=== PATIENT | male | born 1975 | race Caucasian/White ===

== ENCOUNTER 2020-05-16 16:14 | Outpatient (CLI) | payer OTHER, SELFPAY ==
--- NOTE | ~2020-05-16 | CT_ITS ---
EXAMINATION: CT abdomen pelvis w con EXAM DATE: 05/16/2020 17:35 INDICATION: Hiatal hernia, nausea vomiting epigastric pain, nausea, loss of appetite. TECHNIQUE: Spiral CT of the abdomen and pelvis was performed following intravenous injection of 100 m L Omnipaque 350. Axial, coronal and sagittal images were reviewed. The dose-length product (DLP) fo r this examination was 1408.38 mGy-cm. The exposure was tailored according to patient size (auto mA exposure control), and iterative reconstruction (ASIR) was used as additional dose reduction techniqu e. Comparison is made to prior examination from 03/19/2017. FINDINGS: The liver, spleen, adrenal glands and pancreas are unremarkable. There are cholecystectomy clips. Portal and splenic veins are patent. Kidneys enhance symmetrically. There is no hydronephr osis. The prostate is unremarkable. The bladder is unremarkable. There is no retroperitoneal or p elvic lymphadenopathy. Small bilateral inguinal fat-containing hernias. Small umbilical fat-contain ing hernia. The appendix is normal. The stomach and small bowel are unremarkable, no gastroesophageal hiatal her chang.. There is expected amount of colonic stool. No free intraperitoneal gas. The heart is mai l in size. There are no pericardial or pleural effusions. The lung bases are unremarkable. There a re several pelvic bone islands which are unchanged. Moderate bilateral hip osteoarthritis. Lower thor acic bridging endplate osteophytes. IMPRESSION: 1. No acute intra-abdominal findings. 2. Small inguinal and umbilical fat-containing hernias. 3. No hiatal hernia. Reviewed, dictated and finalized at location A.
== END 2020-05-16 16:15 | disposition home or self-care (01) ==
LOC: CHSIMG 16:16
PROVIDERS: PCP Nurse Practitioner Family; Visit Provider Nurse Practitioner Family
DX: K44.9 Diaphragmatic hernia without obstruction or gangrene (principal); R11.2 Nausea with vomiting, unspecified
CPT/HCPCS: 74177; Q9967

== ENCOUNTER → 2020-09-13 00:39 | Outpatient (CLI) | payer OTHER, SELFPAY ==
[2020-09-13 17:52] LABS: SARS-CoV-2 RNA PCR Negative
== END ==
PROVIDERS: PCP Nurse Practitioner Family; Visit Provider Internal Medicine Gastroenterology
DX: Z01.812 Encounter for preprocedural laboratory examination (principal); Z20.822 Contact with and (suspected) exposure to COVID-19
CPT/HCPCS: C9803; U0003; U0005

== ENCOUNTER 2020-09-16 00:43 | Day surgery (SDC) | payer OTHER, SELFPAY ==
[2020-09-05 16:03] VITALS: BMI 36.6
[2020-09-16 09:51] VITALS: BP 152/78; PULSE 68; RESP 18; TEMP 36.2; O2SAT 96; BMI 35.7
[2020-09-16] MEDS: LACTATED RINGERS 1,000 ML 30 ML IV CONT (10:01)
[2020-09-16 10:03] LABS: Glucose Point of Care 236 mg/dl (65-105)
--- NOTE | 2020-09-16 10:06 | P.PNAN_ITS ---
Anes - Initial Pre Proc Eval Procedure: Operation Date: 09/16/20 10:30 Proposed Procedures p Esophagogastroduodenoscopy & Colonoscopy - Luis Alberto Dean MD Date/Time: 09/16/20 10:06 Surgeon: Luis Alberto Dean MD Pre Op Diagnosis: nausea and diarrhea Patient Data Age: 44 Gender: M Height: 1.78 m Weight: 113 kg Last Vital Signs Temp 36.2 C L 09/16/20 09:51 Pulse 68 09/16/20 09:51 Resp 18 09/16/20 09:51 BP 152/78 H 09/16/20 09:51 Pulse Ox 96 09/16/20 09:51 Allergies Allergy/AdvReac Type Severity Reaction Status Date / Time No Known Allergies Allergy Unverified 09/16/20 09:49 Home Medications Medication Instructions Recorded Confirmed Type acetaminophen 500 mg tablet 500 mg PO BID tablet 03/18/20 09/16/20 History atorvastatin 80 mg tablet 80 mg PO DAILY #90 tablet 06/19/20 09/16/20 Rx ondansetron HCl 4 mg tablet 4 mg PO Q8H PRN #14 tablet 06/20/20 09/16/20 Rx lisinopril 20 mg tablet 20 mg PO DAILY #90 tablet 09/16/20 09/16/20 Rx omeprazole 40 mg capsule,delayed 40 mg PO DAILY #30 cap 09/16/20 09/16/20 Rx release Laboratory Tests 09/16/20 09:56 POC Capillary Glucose 236 mg/dl H mg/dl (65-105) Patient hx anesthesia problems: none Family hx anesthesia problems: none PMFSH Past Medical History Medical History Chronic GERD (03/04/17) Cigarette smoker (12/27/17) DM w/o complication type II (04/16/11) Hyperlipidemia associated with type 2 diabetes mellitus Hypertension associated with diabetes Surgical History Surgical History H/O neck surgery fusion 12-02-17 History of cholecystectomy Family History Family History Father Diabetes mellitus Grandparent Diabetes mellitus Social History Social History Smoking packs per day: 1 Smoking cigarettes per day: 20.0 Years smoked: 20 Smoking pack-years: 20.00 Smoking status: Current every day smoker Tobacco type: cigarettes Alcohol intake: current Alcohol use details: social Substance use: never Substance use type: does not use Living arrangements: with family Additional occupation/education comments: [employer] Gender identity (if verbalized by the patient): Male Spiritual care concerns: No Anes - Eval Final PreProcedure Day of Procedure 09/16/20 10:06 Patient weight: obese Heart: regular rate and rhythm Lungs: clear to auscultation Airway: Mallampati scale class II Neurological: alert and oriented Last oral intake: >/= 8 hours ASA classification: III Emergent: no Anesthetic plan: proceed Anesthesia type and monitoring: general GIVS and standard monitoring Informed Consent: The patient's anesthetic plan and its attendant risks and benefits were discussed with the patient/family/POA. Questions were solicited and answers provided to the satisfaction of the patient/family/POA.
--- NOTE | 2020-09-16 10:14 | PM.HPGS ---
History of Present Illness History of Present Illness Consent: Risks, benefits, and alternatives have been discussed and questions answered. Patient agrees to proceed with procedure. Chief complaint: nausea and diarrhea Narrative: Leonel Braden is a 44 year old male with nausea and upper abdominal discomfort, using omeprazole daily, also loose stools. CT scan a/p unremarkable. Never had colonoscopy Review of Systems Constitutional: Constitutional: Denies headache(s) and Denies weakness Eyes: Eyes: Denies blurry vision ENT: Reports Normal hearing present, Denies headache(s) and Denies neck pain Cardiovascular: Cardiovascular: Denies chest pain and Denies dyspnea Respiratory: Respiratory: Denies dyspnea Gastrointestinal: Gastrointestinal: Reports no additional gastrointestinal complaints Genitourinary: Genitourinary: Denies dysuria Musculoskeletal: Musculoskeletal: Denies neck pain Integumentary/Breasts: Skin/Breast: Denies dry skin Neurologic: Reports Normal hearing present, Denies headache(s) and Denies weakness Psychiatric: Psychiatric: Denies anxiety Endocrine: Endocrine: Denies change in body appearance Hematologic/Lymphatic: Hematologic/Lymphatic: Denies easy bleeding Allergic/Immunologic: Allergic/Immunologic: Denies urticaria PMFSH Past Medical History Medical History (Updated 09/16/20 @ 10:15 by Luis Alberto Dean MD) Chronic diarrhea Chronic GERD (03/04/17) Cigarette smoker (12/27/17) DM w/o complication type II (04/16/11) Hyperlipidemia associated with type 2 diabetes mellitus Hypertension associated with diabetes Surgical History Surgical History H/O neck surgery fusion 12-02-17 History of cholecystectomy Family History Family History Father Diabetes mellitus Grandparent Diabetes mellitus Social History Social History Smoking packs per day: 1 Smoking cigarettes per day: 20.0 Years smoked: 20 Smoking pack-years: 20.00 Smoking status: Current every day smoker Tobacco type: cigarettes Alcohol intake: current Alcohol use details: social Substance use: never Substance use type: does not use Living arrangements: with family Additional occupation/education comments: [employer] Gender identity (if verbalized by the patient): Male Spiritual care concerns: No Meds Home Medications and Allergies Home Medications Medication Instructions Recorded Confirmed Type acetaminophen 500 mg tablet 500 mg PO BID tablet 03/18/20 09/16/20 History atorvastatin 80 mg tablet 80 mg PO DAILY #90 tablet 06/19/20 09/16/20 Rx ondansetron HCl 4 mg tablet 4 mg PO Q8H PRN #14 tablet 06/20/20 09/16/20 Rx lisinopril 20 mg tablet 20 mg PO DAILY #90 tablet 09/16/20 09/16/20 Rx omeprazole 40 mg capsule,delayed 40 mg PO DAILY #30 cap 09/16/20 09/16/20 Rx release Allergies Allergy/AdvReac Type Severity Reaction Status Date / Time No Known Allergies Allergy Unverified 09/16/20 09:49 Vital Signs Vital Signs - 24 hr 09/16/20 09:51 Temperature 97.2 F L Pulse Rate 68 Respiratory Rate 18 Blood Pressure 152/78 H Pulse Oximetry 96 Exam Const: General: comfortable and no acute distress HENMT: General nose exam: Normal nares present Eyes: General: appearance normal, both eyes and all related structures Neck: Neck: no JVD Resp: Auscultation: clear to auscultation bilaterally Cardio: Rate: regular rate Rhythm: regular rhythm GI: Inspection: non-distended GI Palp: Yes Soft to palpation Skin: General skin exam: normal color Neuro: General: gait normal Speech: normal speech Extrem: General: normal to inspection Psych: Mental Status: mental status grossly normal Assessment and Plan Assessment and plan (1) Nausea: Code(s): R11.0 - Nausea Status: Ac
[2020-09-16 10:43] VITALS: BP 125/63; PULSE 67; RESP 17; O2SAT 99
[2020-09-16 10:53] VITALS: BP 114/68; PULSE 64; RESP 16; O2SAT 99
[2020-09-16 11:03] VITALS: BP 123/66; PULSE 59; RESP 15; O2SAT 100
== END 2020-09-16 11:12 | disposition home or self-care (01) ==
PROVIDERS: PCP Nurse Practitioner Family; Visit Provider Internal Medicine Gastroenterology
PROC: 0DJ08ZZ Inspection of Upper Intestinal Tract, Via Natural or Artificial Opening Endoscopic (ICD-10-PCS; CPT 43235; principal; 2020-09-16 10:30)
DX: R19.7 Diarrhea, unspecified (principal); K64.8 Other hemorrhoids; K29.50 Unspecified chronic gastritis without bleeding; K21.9 Gastro-esophageal reflux disease without esophagitis; E11.9 Type 2 diabetes mellitus without complications; Z87.891 Personal history of nicotine dependence; R11.0 Nausea
CPT/HCPCS: 45380; 43239; 82948; 88305; C9803; J2704; J7120; U0003; U0005

== ENCOUNTER 2021-08-04 13:54 | Outpatient (CLI) | payer OTHER, SELFPAY ==
--- NOTE | ~2021-08-04 | XR_ITS ---
EXAM: XR thoracic spine 2V DATE: 08/04/2021 14:45 HISTORY: M54.9 - Dorsalgia, unspecified . COMPARISON: None available. FINDINGS: Vertebral body alignment intact. Vertebral body heights preserved. Multilevel mild disc sp abigail narrowing and marginal osteophytosis. 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 No traumatic malalignment or fracture. Visualized lung parenchyma is clear. IMPRESSION: Multilevel mild degenerative disc disease. Diffuse idiopathic skeletal hyperostosis. Reviewed, dictated and finalized at location K. IMPRESSION: Multilevel mild degenerative disc disease. Diffuse idiopathic skele sunday hyperostosis.
--- NOTE | ~2021-08-04 | XR_ITS ---
EXAM: XR_CERV2-3V_CR DATE: 08/04/2021 14:45 HISTORY: M54.9 - Dorsalgia, unspecified . COMPARISON: None available. FINDINGS: Anterior screw and plate fusion with interbody bone plugs spanning C4-C7. No hardware fract ure, perihardware lucency, or bone plug displacement. Craniocervical association and atlantoaxial bety nt are intact. Prominent anterior osteophytes off the anterior aspect of the C1 arch and C2-3 disc sp abigail. No prevertebral soft tissue swelling. Vertebral bodies are aligned. Vertebral body heights and d isc spaces are maintained. Facets are aligned. IMPRESSION: No acute osseous finding in the cervical spine. No radiographic evidence of hardware-rela martín complication. Reviewed, dictated and finalized at location K. IMPRESSION: No acute osseous finding in the cervical spine. No radiographic anne marie dence of hardware-related complication.
--- NOTE | ~2021-08-04 | XR_ITS ---
EXAM: XR elbow LT min 3V DATE: 08/04/2021 14:45 HISTORY: M25.522 - Pain in left elbow no injury . COMPARISON: None available. FINDINGS: Normal mineralization. No fracture or dislocation. No lytic or blastic lesion. Mild osteop hytosis about the elbow joint. No erosion or periosteal change. Soft tissues within normal limits. IMPRESSION: No acute osseous finding in the left elbow. Mild left elbow osteoarthritis. Reviewed, dictated and finalized at location K. IMPRESSION: No acute osseous finding in the left elbow. Mild left elbow osteoar thritis.
== END 2021-08-04 13:55 | disposition home or self-care (01) ==
LOC: CHSIMG 13:56
PROVIDERS: PCP Family Medicine; Visit Provider Family Medicine
DX: M54.9 Dorsalgia, unspecified (principal); M25.522 Pain in left elbow
CPT/HCPCS: 72040; 72070; 73080

== ENCOUNTER 2021-08-11 17:06 | Outpatient (RCR) | payer OTHER, SELFPAY ==
--- NOTE | 2021-08-11 17:33 | PTOPEVAL ---
Thank you for referring Leonel Braden to [facility].? The patient is scheduled to be seen for therapy? __2__x/week for 6 visits. Please review, sign, date and return this plan of care CANDIDA. I agree with and certify that the following plan of care is medically necessary. Referring Physician Date Admitting Provider: Attending Provider: Kane Johnson DO Referring Provider: *PT Outpatient Evaluation Start: 08/11/21 17:09 Freq: Status: Active Protocol: Document 08/11/21 17:09 GAGE (Rec: 08/11/21 17:33 GAGE [id number]) Therapy Assessment Status Assessment Status Assessment Status Evaluation Outpatient Past Medical History Neurological History Hx Neurological Disorders No Significant History Cardiovascular History Hx Hypercholesterolemia Yes Hx Hypertension Yes Respiratory History Hx Respiratory Disorders No Significant History Gastrointestinal History Hx Cholecystectomy Yes: 2009 Hx Colitis Yes Hx Gastroesophageal Reflux Disease Yes Hx Other Gastrointestinal Disorders Yes: DIARRHEA CONSTANT FOR LONG TIME AND NAUSEA Genitourinary History Hx Genitourinary Disorders No Significant History Musculoskeletal History Hx Spinal Surgery Yes: CERVICAL VERTEBRAE C3-C7 11/2017 Hematological History Hx Hematological Disorders No Significant History Endocrine History Hx Diabetes Yes: TYPE 2 HEENT History Hx Tonsillectomy Yes: CHILDHOOD Hx Sinus Problems Yes: ALLERGIES Integumentary History Hx Skin Disorders No Significant History Reproductive History Hx Reproductive Disorders No Significant History Psychosocial History Hx Psychiatric Disorders No Significant History Pain History History of Any Previous or Ongoing No Significant History Instance of Pain Anesthesia History Hx Anesthesia Reactions No Significant History Other History Hx Implanted Device Yes: ? SCREWS NECK Evaluation Information Problem Diagnosis dorsalgia Onset 07/10/21 Subjective Information Pt. recalls no incident, he Query Text:As Reported By Patient/ states that he woke with Family numbness in his arm. He reports that he has no strength in the left arm. He reports he cannot fully open the hand. 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 He reports that pain and numbness
== END 2021-08-29 13:46 | disposition home or self-care (01) ==
LOC: CHSPT 17:06
PROVIDERS: PCP Family Medicine; Visit Provider Family Medicine
DX: M54.9 Dorsalgia, unspecified (principal)
CPT/HCPCS: 97014; 97110; 97161; G0283

== ENCOUNTER 2021-09-15 09:18 | Outpatient (CLI) | payer OTHER, SELFPAY ==
[2021-09-15] MEDS: SODIUM CHLORIDE 0.9% IV 1,000 ML 500 ML IVPB ×2 (09:30→11:28)
[2021-09-15 09:33] LABS: Hematocrit 40.2 % (40.0-54.0); Hemoglobin 13.5 g/dL (14.0-18.0); Mean Corpuscular HGB Conc 33.6 g/dL (32.0-36.0); Mean Corpuscular Hemoglobin 31.4 pg (27.0-31.0); Mean Corpuscular Volume 93.5 fL (78.0-102.0); Mean Platelet Volume 9.4 fl (8.7-11.0); Platelet Count Result 226 K/mm3 (150-420); Red Cell Distribution Width 12.7 % (11.6-14.4); White Blood Count 10.7 K/mm3 (4.8-10.8)
[2021-09-15 09:52] VITALS: BMI 34.4
[2021-09-15 09:53] VITALS: BP 122/64; PULSE 80; RESP 16; TEMP 36.6; O2SAT 99
[2021-09-15 10:15] LABS: Alanine Aminotransferase 28 U/L (16-63); Albumin Level 3.8 g/dL (3.4-5.0); Alkaline Phosphatase 94 U/L (46-116); Anion Gap 12 mmol/L (8-16); Aspartate Amino Transferase 27 U/L (15-37); Bilirubin,Total 0.4 mg/dL (0.00-1.00); Blood Urea Nitrogen 49 mg/dL (7-18); Carbon Dioxide 23 mmol/L (21-32); Chloride 100 mmol/L (98-108); Estimated CRCL calculation 43 ml/min; Estimated Glomerular Filt Rate 29; Glucose 273 mg/dL (70-99); Osmolality Calculated 303 mOsm/kg (285-295); Potassium 4.2 mmol/L (3.5-5.1); Sodium 135 mmol/L (136-145); Total Protein 7.2 g/dL (6.4-8.2)
--- NOTE | 2021-09-15 11:16 | PC.NURSE ---
[id number] Johnson office for 1 L of NS to infuse and lab work. 1 L NS administered. [id number] Dr. Johnson called and sent for additional 1 L of NS to infused and lab work after that. Tolerated infusion well.
--- NOTE | 2021-09-15 13:23 | PC.NURSE ---
2nd liter of normal saline infused. Patient tolerated well. Lab up draw lab work -chemistry. Patient voices no complaints. Safe exit of hospital.
[2021-09-15 13:35] LABS: Alanine Aminotransferase 40 U/L (16-63); Albumin Level 3.5 g/dL (3.4-5.0); Alkaline Phosphatase 85 U/L (46-116); Anion Gap 8 mmol/L (8-16); Aspartate Amino Transferase 24 U/L (15-37); Bilirubin,Total 0.5 mg/dL (0.00-1.00); Blood Urea Nitrogen 49 mg/dL (7-18); Calcium 8.6 mg/dL (8.5-10.1); Carbon Dioxide 26 mmol/L (21-32); Chloride 104 mmol/L (98-108); Estimated CRCL calculation 47 ml/min; Estimated Glomerular Filt Rate 32; Glucose 140 mg/dL (70-99); Osmolality Calculated 301 mOsm/kg (285-295); Potassium 4.1 mmol/L (3.5-5.1); Sodium 138 mmol/L (136-145); Total Protein 7.2 g/dL (6.4-8.2)
== END 2021-09-15 09:19 | disposition home or self-care (01) ==
LOC: CHSTREATRM 09:20
PROVIDERS: PCP Family Medicine; Visit Provider Family Medicine
DX: E86.0 Dehydration (principal); I95.1 Orthostatic hypotension; R82.71 Bacteriuria; E11.69 Type 2 diabetes mellitus with other specified complication; E78.5 Hyperlipidemia, unspecified; R74.01 Elevation of levels of liver transaminase levels
CPT/HCPCS: 36415; 80053; 85027; 87086; 96360; 96361; J7030

== ENCOUNTER 2021-09-17 15:56 | Outpatient (CLI) | payer OTHER, SELFPAY ==
[2021-09-17 16:23] LABS: Anion Gap 9 mmol/L (8-16); Blood Urea Nitrogen 40 mg/dL (7-18); Carbon Dioxide 23 mmol/L (21-32); Chloride 103 mmol/L (98-108); Estimated Glomerular Filt Rate 48; Glucose 250 mg/dL (70-99); Osmolality Calculated 297 mOsm/kg (285-295); Potassium 4.2 mmol/L (3.5-5.1); Sodium 135 mmol/L (136-145)
== END 2021-09-17 15:57 | disposition home or self-care (01) ==
LOC: CHSLAB 15:58
PROVIDERS: PCP Family Medicine; Visit Provider Family Medicine
DX: N17.9 Acute kidney failure, unspecified (principal)
CPT/HCPCS: 36415; 80048

== ENCOUNTER 2021-09-30 08:08 | Outpatient (CLI) | payer OTHER, SELFPAY ==
--- NOTE | 2021-09-30 10:00 | NEURO_ITS ---
Impression: # Complains of inability to extend fingers and numbness. History of C-spine surgery. # Mild Carpal Tunnel Syndrome bilaterally. # Left ulnar neuropathy across the elbow. # Abnormal needle/EMG exam on the left suggestive of old deficit with motor involvement of extensor muscles,as well.. Nerve Conduction Studies Anti Sensory Summary Table Stim Site NR Peak (ms) P-T Amp (?V) Site1 Site2 Delta-P (ms) Dist (cm) Alex (m/s) Left Median Anti Sensory (2-3nd Digit) Wrist 3.9 10.9 Wrist 2-3nd Digit 3.9 14.0 36 Wrist 3.8 17.0 Wrist 2-3nd Digit 3.9 14.0 36 Right Median Anti Sensory (2-3nd Digit) Wrist 3.6 16.7 Wrist 2-3nd Digit 3.6 14.0 39 Wrist 3.8 19.2 Wrist 2-3nd Digit 3.6 14.0 39 Left Radial Anti Sensory (Base 1st Digit) Wrist 2.2 11.8 Wrist Base 1st Digit 2.2 0.0 Right Radial Anti Sensory (Base 1st Digit) Wrist 2.8 5.1 Wrist Base 1st Digit 2.8 0.0 Left Ulnar Anti Sensory (5th Digit) Wrist 2.7 51.4 Wrist 5th Digit 2.7 14.0 52 Right Ulnar Anti Sensory (5th Digit) Wrist 2.6 60.5 Wrist 5th Digit 2.6 14.0 54 Motor Summary Table Stim Site NR Onset (ms) O-P Amp (mV) Site1 Site2 Delta-0 (ms) Dist (cm) Alex (m/s) Left Median Motor (Abd Poll Brev) Wrist 4.2 3.1 Elbow Wrist 6.5 31.0 48 Elbow 10.7 2.8 Right Median Motor (Abd Poll Brev) Wrist 4.2 3.0 Elbow Wrist 5.4 28.0 52 Elbow 9.6 2.7 Left Ulnar Motor (Abd Dig Minimi) Wrist 3.0 3.4 A Elbow Wrist 8.2 32.0 39 A Elbow 11.2 2.4 B Elbow Wrist 6.3 27.0 43 B Elbow 9.3 2.8 Right Ulnar Motor (Abd Dig Minimi) Wrist 2.5 5.4 A Elbow Wrist 6.6 31.0 47 A Elbow 9.1 4.7 B Elbow Wrist 4.9 22.0 45 B Elbow 7.4 4.6 F Wave Studies NR F-Lat (ms) L-R F-Lat (ms) Left Median (Mrkrs) (Abd Poll Brev) 28.43 2.93 Right Median (Mrkrs) (Abd Poll Brev) 25.50 2.93 Left Ulnar (Mrkrs) (Abd Dig Min) 27.14 3.06 Right Ulnar (Mrkrs) (Abd Dig Min) 24.08 3.06 EMG Side Muscle Nerve Root Ins Act Fibs Amp Dur Recrt Comment Right 1stDorInt Ulnar C8-T1 Nml Nml Nml Nml Nml Right Ext Indicis Radial (Post Int) C7-8 Nml Nml Nml Nml Nml Right Ext Digitorum Radial (Post Int) C7-8 Nml Nml Nml Nml Nml Right BrachioRad Radial C5-6 Nml Nml Nml Nml Nml Right PronatorTeres Median C6-7 Nml Nml Nml Nml Nml Right Abd Poll Brev Median C8-T1 Nml Nml Nml Nml Nml Left 1stDorInt Ulnar C8-T1 Nml Nml Incr >12ms Reduced Left Ext Indicis Radial (Post Int) C7-8 Nml Nml Incr >12ms Reduced Left Ext Digitorum Radial (Post Int) C7-8 Nml Nml Incr >12ms Reduced Left BrachioRad Radial C5-6 Nml Nml Incr >12ms Reduced Left PronatorTeres Median C6-7 Nml Nml Incr >12ms Reduced Left Abd Poll Brev Median C8-T1 Nml Nml Incr >12ms Reduced Right ABD Dig Min Ulnar C8-T1 Nml Nml Nml Nml Nml Left ABD Dig Min Ulnar C8-T1 Nml Nml Nml Nml Nml Left Biceps Musculocut C5-6 Nml Nml Incr >12ms Reduced Left Triceps Radial C6-7-8 Nml Nml Incr >12ms Reduced Left Deltoid Axillary C5-6 Nml Nml Incr >12ms Reduced MTDD
== END 2021-09-30 08:09 | disposition home or self-care (01) ==
PROVIDERS: PCP Family Medicine; Visit Provider Family Medicine
DX: M25.522 Pain in left elbow (principal); G56.03 Carpal tunnel syndrome, bilateral upper limbs; G56.22 Lesion of ulnar nerve, left upper limb; R94.131 Abnormal electromyogram [EMG]
CPT/HCPCS: 95886; 95911

== ENCOUNTER 2023-02-04 14:01 | Outpatient (CLI) | payer OTHER, SELFPAY ==
[2023-02-04 14:21] LABS: Basophils Absolute Auto 0.02 K/mm3 (0.00-0.10); Basophils Percent Auto 0.2 % (0.0-1.0); Eosinophils Absolute Auto 0.45 K/mm3 (0.02-0.50); Eosinophils Percent Auto 5.4 % (1.0-6.0); Hemoglobin 15.2 g/dL (14.0-18.0); Immature Granulocyte Absolute 0.03 K/mm3 (0.00-0.00); Immature Granulocyte Percent A 0.4 % (0.0-0.0); Lymphocytes Percent Auto 25.1 % (18.0-42.0); Mean Corpuscular HGB Conc 33.8 g/dL (32.0-36.0); Mean Corpuscular Hemoglobin 30.7 pg (27.0-31.0); Mean Corpuscular Volume 90.9 fL (78.0-102.0); Mean Platelet Volume 9.2 fl (8.7-11.0); Monocytes Absolute Auto 0.87 K/mm3 (0.10-0.90); Monocytes Percent Auto 10.4 % (2.0-11.0); Neutrophils Absolute Auto 4.9 K/mm3 (1.7-7.2); Neutrophils Percent Auto 58.5 % (50.0-70.0); Platelet Count Result 236 K/mm3 (150-420); Red Blood Count 4.95 M/mm3 (4.70-6.10); Red Cell Distribution Width 12.8 % (11.6-14.4); White Blood Count 8.4 K/mm3 (4.8-10.8)
[2023-02-04 14:44] LABS: Hemoglobin A1C 6.6 % (<5.7)
[2023-02-04 14:48] LABS: Creatinine Urine 204.29 mg/dL (40-278)
[2023-02-04 15:28] LABS: MALB Creatinine Ratio 195.8 mg/g (0-30); Microalbumin Urine Random > 400.0 mg/L
[2023-02-04 15:32] LABS: Alanine Aminotransferase 36 U/L (16-63); Albumin Level 3.2 g/dL (3.4-5.0); Alkaline Phosphatase 127 U/L (46-116); Anion Gap 4 mmol/L (8-16); Aspartate Amino Transferase 17 U/L (15-37); Bilirubin,Total 0.3 mg/dL (0.00-1.00); Blood Urea Nitrogen 20 mg/dL (7-18); Calcium 8.7 mg/dL (8.5-10.1); Carbon Dioxide 30 mmol/L (21-32); Chloride 104 mmol/L (98-108); Cholesterol 206 mg/dL (0-200); Estimated Glomerular Filt Rate > 60; Glucose 210 mg/dL (70-99); HDL Direct 33 mg/dL (40-60); LDL Cholesterol Calculated 125 mg/dL (<130); Osmolality Calculated 294 mOsm/kg (285-295); Potassium 4.3 mmol/L (3.5-5.1); Sodium 138 mmol/L (136-145); Total Protein 6.4 g/dL (6.4-8.2); Triglycerides 242 mg/dL (0-150)
== END 2023-02-04 14:02 | disposition home or self-care (01) ==
LOC: CHSLAB 14:04
PROVIDERS: PCP Family Medicine; Visit Provider Family Medicine
DX: E11.59 Type 2 diabetes mellitus with other circulatory complications (principal); I10 Essential (primary) hypertension
CPT/HCPCS: 36415; 80053; 80061; 82043; 83036; 85025